=== PATIENT | male | born 1935 | race Caucasian/White ===

== ENCOUNTER 2017-02-11 14:32 | Emergency (ER) | payer MEDICARE, BC ==
[2017-02-11 16:49] LABS: BASOPHILS 1.8 % (0.0-2.0); EOSINOPHILS 1.7 % (0.0-6.0); LYMPHOCYTES 56.8 % (20.0-40.0); LYMPHOCYTES# 0.9 X 10^3uL (0.8-3.8); MEAN CELL VOLUME 96.1 fL (80.0-100.0); MEAN CORPUS. HGB CONCENTRATION 35.4 g/dL (32.0-36.0); MEAN PLATELET VOLUME 6.5 fL (7.4-10.4); MONOCYTES 2.1 % (2.0-10.0); NEUTROPHILS 37.6 % (54.0-75.0); NEUTROPHILS# 0.5 X 10^3uL (2.6-6.7); RED BLOOD COUNT 1.71 X 10^6uL (4.20-6.10); RED CELL DISTRIBUTION WIDTH 18.1 % (11.5-14.5)
[2017-02-11 16:51] LABS: ALBUMIN 3.3 g/dL (3.5-5.0); ALKALINE PHOSPHATASE 95 U/L (38-126); ALT 32 U/L (21-72); AST 19 U/L (17-59); BILIRUBIN, DIRECT 0.2 mg/dL (0.0-0.4); BILIRUBIN, TOTAL 0.8 mg/dL (0.2-1.3); BLOOD UREA NITROGEN 21 mg/dL (9-20); CALCIUM 9.1 mg/dL (8.4-10.2); CHLORIDE 102 mmol/L (98-107); CREATININE 0.9 mg/dL (0.7-1.3); EST GLOMERULAR FILTRATION RATE > 60 mL/min; GLUCOSE 116 mg/dL (70-100); LIPASE 88 U/L (23-300); POTASSIUM 4.1 mmol/L (3.5-5.1); SODIUM 135 mmol/L (137-145); TOTAL PROTEIN 5.8 g/dL (6.3-8.2)
[2017-02-11 17:47] LABS: HEMATOCRIT 16.4 % (42.0-54.0); HEMOGLOBIN 5.8 g/dL (14.0-18.0); PLATELET COUNT 8 X 10^3uL (130-440)
[2017-02-11 17:49] LABS: ABO GROUP TYPE B; ANTIBODY SCREEN NEGATIVE; RH TYPE NEGATIVE; WHITE BLOOD COUNT 1.4 X 10^3uL (3.9-10.7)
[2017-02-11 17:50] LABS: CROSSMATCH IMMEDIATE SPIN COMPATIBLE
--- NOTE | 2017-02-11 18:53 | ER PHYSICIAN DOCUMENTATION ---
Physician Documentation [facility] Name:Santiago Verma Age:81 yrs Sex:Male :1935 Arrival Date:02/11/2017 Time:14:32 BedTrauma A Private MD:Keanu Correa ED, Chris Disposition: 02/11 17:52 Critical Care: not applicable. cd 17:55 Chart complete. cd Disposition: 02/11/17 17:55 Transfer ordered to [facility]. 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 - Reason for transfer: Higher level of care. - Accepting physician is Dr. Joseph Martin, [facility] Hospitalist. - Condition is Serious. - Problem is an acute exacerbation. - Symptoms have improved. COBRA Form completed? Yes Transfer - Mode of Transportation Ambulance HPI: 17:28 This 81 yrs old Male presents to ER via Private Vehicle with complaints of cd Profound Weekness and Shortness of Breath. 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 Was on Vidaza for 14 months which kept it in remission. [employer] no longer worked December 2016. He had a new Chemotherapeutic Agent 2 weeks ago. He now complains of profound weakness at home. He denies melena, hematochezia or hematemesis. He denies fever, chills or rigors at home. There has been no nausea, vomiting or diarrhea. Onset: The symptom(s)/episode began/occurred gradually, 1 week(s) ago. Duration: The symptoms are continuous, and are steadily getting worse. Associated signs and symptoms: Pertinent negatives: chest pain, productive cough, diaphoresis, fever, hemoptysis, nausea, vomiting. Severity of symptoms: At their worst the symptoms were moderate in the emergency department the symptoms are unchanged. Historical: - Allergies: PENICILLINS; Aciphex; tree nuts; - Home Meds: 1. Omeprazole Oral - PMHx: PSEUDOPHAKIA; FATIGUE; URINARY RETENTION; HYPOXEMIA; KIDNEY CYST; KIDNEY STONES; SPINAL STENOSIS OF LUMBAR REGION; SPONDYLOLISTHESIS ; ARTHRITIS; GERD; COLON POLYP; BRONCHITIS; ATRIAL FIB; CHRONIC PAIN; ACUTE MYELOID LEUKEMIA; WALDENSTROM MACROGLOBULINEMIA; HERPES ZOSTER OPHTHALMICUS; CARDIAC MURMUR; CHOLELITHIASIS; HEPATITIS; Chills w/o Fever - : Rule out Endocarditis vs AML Reoccurance (January 02, 2017); - PSHx: LAMINECTOMY; TONSILLECTOMY; ADENOIDS; CATARACT SURGERY; - Tetanus: unknown. - Ebola Screening: : Patient negative for fever greater than or equal to 101.5 degrees Fahrenheit, and additional compatible Ebola Virus Disease symptoms. Patient denies exposure to infectious person. Patient denies travel to an Ebola-affected area in the 21 days before illness onset. No symptoms or risks identified at this time. . - Immunization history: Unable to Obtain. ROS: 17:36 Eyes: Negative for injury, pain, redness, discharge, blurry vision and loss of vision. cd ENT: Negative for injury, pain, epistaxis and discharge. Neck: Negative for injury, pain, stiffness and swelling. Cardiovascular: Negative for chest pain, palpitations, edema and pleuritic pain. Abdomen/GI: Negative for abdominal pain, nausea, vomiting, diarrhea, constipation, distension, melena, hematochezia and hematemesis. Back: Negative for injury, pain or muscle spasms. : Negative for injury, bleeding, discharge, swelling, dysuria, frequency or urgency. MS/Extremity: Negative for injury, deformity, edema, calf tenderness, pain or coldness. 17:36 Skin: Negative for injury, rash, itching and discoloration. cd 17:36 Constitutional: Positive for fatigue, malaise, poor PO intake, Negative for chills, fever. 17:36 Respiratory: Positive for dyspnea on exertion, shortness of breath, Negative for cough, hemoptysis, orthopnea, pleurisy, wheezing. 17:36 Neuro: Positive for weakness, Negative for altered mental status, headache, loss of consciousness, syncope. 17:36 All other systems are negative. Exam: Head/Face: Normocephalic, atraumatic. Eyes: Pupils equal round and reactive to light, extra-ocular motions intact. Inner lids pale and lashes normal. Conjunctiva and sclera are non-icteric and not injected. Cornea within normal limits. Periorbital areas with no swelling, redness, or edema. ENT: Nares patent. No nasal discharge, no septal abnormalities noted. Tympanic membranes are normal and external auditory canals are clear. Oropharynx with no redness, swelling, or masses, exudates, or evidence of obstruction, uvula midline. Mucous membranes dry. Gums pale Neck: Trachea midline, no thyromegaly or masses palpated, and no cervical lymphadenopathy. Supple, full range of motion without nuchal rigidity, or vertebral point tenderness. No Meningismus. Chest/axilla: Normal chest wall appearance and motion. Nontender with no deformity. No lesions are appreciated. Cardiovascular: Regular rate and rhythm with a normal S1 and S2. No gallops, murmurs, or rubs. Normal PMI, no JVD. No pulse deficits. Respiratory: Lungs have equal breath sounds bilaterally, clear to auscultation and percussion. No rales, rhonchi or wheezes noted. No increased work of breathing, no retractions or nasal flaring. Abdomen/GI: Soft, non-tender, with normal bowel sounds. No distension or tympany. No guarding or rebound. No evidence of tenderness throughout. Back: No spinal tenderness. No costovertebral tenderness. Full range of motion. MS/ Extremity: Pulses equal, no cyanosis. Neurovascular intact. Full, normal range of motion. 17:37 Neuro: Awake and alert, GCS 15, oriented to person, place, time, and situation. cd Cranial nerves II-XII grossly intact. Motor strength 5/5 in all extremities. Sensory grossly intact. Cerebellar exam normal. Normal gait. 17:37 Constitutional: The patient appears alert, awake, non-diaphoretic, non-toxic, well developed, frail, listless, pale. 17:37 Cardiovascular: Rate: normal, Rhythm: regular, Pulses: no pulse deficits are appreciated, Heart sounds: normal, Edema: is not appreciated. 17:37 Respiratory: the patient does not display signs of respiratory distress, Respirations: normal, no acute changes, labored breathing, is not present, shallow respirations, are not present, Breath sounds: rales, are not appreciated, rhonchi, are not appreciated, wheezing, is not appreciated, bronchial sounds, are not appreciated. 17:37 Skin: Appearance: Color: pale. Vital Signs: 14:40 BP 136 / 54; Pulse 83; Resp 24; Pulse Ox 94% on R/A; Pain 0/10; rs 15:00 BP 116 / 55; Pulse 79; Resp 20; Pulse Ox 100% on 2 lpm NC; Pain 0/10; rs 15:20 BP 135 / 53; Pulse 85; Resp 18; Pulse Ox 100% on 2 lpm NC; Pain 0/10; rs 15:30 BP 125 / 44; Pulse 83; Resp 20; Pulse Ox 91% on 2 lpm NC; Pain 0/10; rs 15:40 BP 126 / 50; Pulse 82; Resp 20; Pulse Ox 98% on 2 lpm NC; Pain 0/10; rs 16:00 BP 125 / 46; Pulse 78; Resp 20; Pulse Ox 99% on 2 lpm NC; Pain 0/10; rs 16:20 BP 114 / 52; Pulse 79; Pulse Ox 100% on 2 lpm NC; Pain 0/10; rs 16:40 BP 107 / 49; Pulse 79; Pulse Ox 99% ; Pain 0/10; rs 17:00 BP 107 / 49; Pulse 77; Resp 16; Pulse Ox 99% on 2 lpm NC; Pain 0/10; rs 17:18 BP 104 / 47; Pulse 75; Resp 16; Pulse Ox 98% on 2 lpm NC; Pain 0/10; rs 17:30 BP 102 / 50; Pulse 78; Resp 16; Pulse Ox 99% on 2 lpm NC; Pain 0/10; rs 18:00 BP 109 / 44; Pulse 78; Resp 18; Pulse Ox 99% on 2 lpm NC; Pain 0/10; rs 18:15 BP 111 / 50; Pulse 80; Resp 18; Pulse Ox 100% on 2 lpm NC; Pain 0/10; rs Isra Coma Score: 17:37 Eye Response: spontaneous(4). Verbal Response: oriented(5). Motor Response: obeys cd commands(6). Total: 15. MDM: 14:45 Data interpreted: Pulse oximetry: on room air is 94 %. Interpretation: normal. cd 14:48 Patient medically screened. cd 15:00 Differential diagnosis: Anemia Pulmonary Embolism Sepsis Dehydration. Antibiotic cd administration: Not indicated, the patient does not have an appreciated infiltrate. 16:00 Data reviewed: vital signs, nurses notes, old medical records, radiologic studies, and cd as a result, I will continue to observe the patient, administer IV fluids, NS maintenence, and check his CBC. I suspect he has a severe Pancytopenia due to his recent Chemotherapy 2 weeks ago.. 17:35 Physician consultation: Joseph Martin MD was called at 17:20, was contacted at 17:26, jeffrey regarding admission, to [facility] Oncology Floor Bed 3004, consult, patient's condition, need to evaluate the patient as soon as possible, and will see patient in inpatient room, shortly, later today, after a discussion of the case, a recommendation for transfer for higher level of care is made. 17:42 Counseling: I had a detailed discussion with the patient and/or guardian regarding: the cd historical points, exam findings, and any diagnostic results supporting the discharge/admit diagnosis, lab results, radiology results, the need to transfer to another facility, for higher level of care, [facility] does not immediately have the required specialist. 17:48 ED course: After multiple attempts at an IV we had to call in the PHONE REPRESENTATIVE, Kyler Gonsales cd to start the IV. He was also able to draw the blood work. The patient's ANC was just over 500 at 526. His H & H is 5.8 and 16.4. The patient's Platelet Count is very low at 8,000. He will be transfused with 2 units of blood. The first unit will be O- blood and the second unit will be Typed & Crossed. His vital signs remained stable throughout the patient's ED stay.. 18:18 Other attached tg 02/11 17:47 Order name: CBC AUTO DIF, MDIF/RMOR IF IND; Complete Time: 17:51 EDMS 02/11 17:51 Interpretation: Abnormal: WHITE BLOOD COUNT 1.4; HEMOGLOBIN 5.8; HEMATOCRIT 16.4; cd PLATELET COUNT 8; NEUTROPHILS 37.6; ., Pancytopenia, Anemia, Neutropenia, Thrombocytopenia. 02/11 17:48 Order name: BASIC METABOLIC PANEL; Complete Time: 17:51 EDMS 02/11 17:52 Interpretation: Normal. 02/11 17:48 Order name: HEPATIC PANEL; Complete Time: 17:51 EDMS 02/11 17:52 Interpretation: Normal Except: ALBUMIN 3.3; TOTAL PROTEIN 5.8. cd 02/11 17:48 Order name: LIPASE; Complete Time: 17:51 EDMS 02/11 17:52 Interpretation: Normal. cd 02/11 17:50 Order name: ABO GROUP; Complete Time: 17:52 EDMS 03/18 17:52 Interpretation: Normal. cd 02/11 17:50 Order name: RH TYPE; Complete Time: 17:52 EDMS 02/11 17:52 Interpretation: Normal. cd 02/11 17:50 Order name: ANTIBODY SCREEN; Complete Time: 17:52 EDMS 02/11 17:52 Interpretation: Normal. cd 02/11 17:50 Order name: CROSSMATCH IMMEDIATE SPIN; Complete Time: 17:52 EDMS 02/11 17:52 Interpretation: Normal. cd 02/11 14:49 Order name: I & O; Complete Time: 16:58 cd 02/11 14:49 Order name: NPO; Complete Time: 16:00 cd 02/11 14:49 Order name: Oxygen; Complete Time: 16:00 cd 02/11 14:49 Order name: Place Patient On Monitor; Complete Time: 16:00 cd 02/11 14:49 Order name: Pulse Ox Continuous; Complete Time: 16:00 cd 02/11 14:49 Order name: 12-lead EKG cd 02/11 14:49 Order name: Accucheck; Complete Time: 16:58 cd 02/11 14:49 Order name: Iv Saline Lock; Complete Time: 16:58 cd 02/11 17:04 Order name: Transfuse 2 Units T & C'd PRBCs: Transfuse one unit Type and Cross...; cd Complete Time: 18:18 02/11 17:04 Order name: Transfuse 2 Units Type Specific PRBCs: Transfuse one unit Type Specific cd PRBC's; Complete Time: 18:18 Dispensed Medications: 16:45 Drug: NS 0.9% 1000 ml; Volume: 1000 ml; Route: IV; Rate: 85 ml/hr; Site: right forearm; rs Delivery: Pump; 16:54 CANCELLED (Physician Discretion): NS 0.9% 500 ml IV at bolus once rs Signatures: Silverio Mckenzie RN RN tg Trisha Sandy RN RN Giorgio Sin MD MD cd
--- NOTE | 2017-02-11 18:53 | ER NURSING DOCUMENTATION ---
Nurse's Notes [facility] Name:Santiago Verma Age:81 yrs Sex:Male :1935 Arrival Date:02/11/2017 Time:14:32 BedTrauma A Private MD:Keanu Correa Diagnosis:Pancytopenia- 2nd to AML Chemotherapy 2 weeks ago;Aplastic Anemia-: Severe;Weakness;Dehydration Presentation: 02/11 14:39 Presenting complaint: Patient states: Hx of leukemia tx with new chemo recently and rs started to feel bad one week ago. Worse today; c/o SOB and weakness. States "blood counts are down". Transition of care: Home. 14:39 Acuity: ANURADHA 2 rs 14:39 Method Of Arrival: Private Vehicle rs Triage Assessment: 14:40 General: Appears slender, uncomfortable, Behavior is Angry. . Pain: Denies pain. Neuro: rs No deficits noted. Level of Consciousness is awake, alert, Oriented to person, place, time, event. Cardiovascular: Capillary refill is > 3 seconds Reports shortness of breath weakness Chest pain is denied. Respiratory: Respiratory effort is even, unlabored, Respiratory pattern is regular, symmetrical, tachypnea Breath sounds are clear bilaterally. Reports shortness of breath Onset: The symptoms/episode began/occurred one week. Derm: Skin is dry, Skin is pale, Skin temperature is warm. Historical: - Allergies: PENICILLINS; Aciphex; tree nuts; - Home Meds: 1. Omeprazole Oral - PMHx: PSEUDOPHAKIA; FATIGUE; URINARY RETENTION; HYPOXEMIA; KIDNEY CYST; KIDNEY STONES; SPINAL STENOSIS OF LUMBAR REGION; SPONDYLOLISTHESIS ; ARTHRITIS; GERD; COLON POLYP; BRONCHITIS; ATRIAL FIB; CHRONIC PAIN; ACUTE MYELOID LEUKEMIA; WALDENSTROM MACROGLOBULINEMIA; HERPES ZOSTER OPHTHALMICUS; CARDIAC MURMUR; CHOLELITHIASIS; HEPATITIS; Chills w/o Fever - : Rule out Endocarditis vs AML Reoccurance (January 02, 2017); - PSHx: LAMINECTOMY; TONSILLECTOMY; ADENOIDS; CATARACT SURGERY; - Tetanus: unknown. - Ebola Screening: : Patient negative for fever greater than or equal to 101.5 degrees Fahrenheit, and additional compatible Ebola Virus Disease symptoms. Patient denies exposure to infectious person. Patient denies travel to an Ebola-affected area in the 21 days before illness onset. No symptoms or risks identified at this time. . - Immunization history: Unable to Obtain. Screenin:41 Infectious Disease Risk None. Abuse screen: Denies threats or abuse. Nutritional rs screening: Unable to Obtain. Assessment: 16:51 Reassessment: Patient states feeling better. Patient states symptoms have improved. rs Skin color is less pale. . 19:48 Respiratory: Airway. rs Vital Signs: 14:40 BP 136 / 54; Pulse 83; Resp 24; Pulse Ox 94% on R/A; Pain 0/10; rs 15:00 BP 116 / 55; Pulse 79; Resp 20; Pulse Ox 100% on 2 lpm NC; Pain 0/10; rs 15:20 BP 135 / 53; Pulse 85; Resp 18; Pulse Ox 100% on 2 lpm NC; Pain 0/10; rs 15:30 BP 125 / 44; Pulse 83; Resp 20; Pulse Ox 91% on 2 lpm NC; Pain 0/10; rs 15:40 BP 126 / 50; Pulse 82; Resp 20; Pulse Ox 98% on 2 lpm NC; Pain 0/10; rs 16:00 BP 125 / 46; Pulse 78; Resp 20; Pulse Ox 99% on 2 lpm NC; Pain 0/10; rs 16:20 BP 114 / 52; Pulse 79; Pulse Ox 100% on 2 lpm NC; Pain 0/10; rs 16:40 BP 107 / 49; Pulse 79; Pulse Ox 99% ; Pain 0/10; rs 17:00 BP 107 / 49; Pulse 77; Resp 16; Pulse Ox 99% on 2 lpm NC; Pain 0/10; rs 17:18 BP 104 / 47; Pulse 75; Resp 16; Pulse Ox 98% on 2 lpm NC; Pain 0/10; rs 17:30 BP 102 / 50; Pulse 78; Resp 16; Pulse Ox 99% on 2 lpm NC; Pain 0/10; rs 18:00 BP 109 / 44; Pulse 78; Resp 18; Pulse Ox 99% on 2 lpm NC; Pain 0/10; rs 18:15 BP 111 / 50; Pulse 80; Resp 18; Pulse Ox 100% on 2 lpm NC; Pain 0/10; rs Isra Coma Score: 17:37 Eye Response: spontaneous(4). Verbal Response: oriented(5). Motor Response: obeys cd commands(6). Total: 15. ED Course: 14:33 Patient arrived in ED. ds 14:33 Keanu Correa MD is Private Physician. ds 14:39 Trisha Sandy RN is Primary Nurse. rs 14:45 Bed in low position Call Light in Reach Gowned HOB Elevated Side rails up x1. Family rs accompanied patient. 14:48 Giorgio Menchaca MD is Attending Physician. cd 14:48 Notified ED Physician of patient's arrival and chief complaint. Dr. Menchaca notified. rs 14:50 Door closed. Noise minimized. Verbal reassurance given. rs 15:00 Missed attempts: 20 gauge X 2 in left forearm, Pt refuses to allow IV to be started in rs AC. . 15:17 Triage completed. rs 15:20 Missed attempts: 20 gauge X 2 per rolled materials worker. rs 15:27 Port Xray Completed. pm1 15:44 Pulse Ox - RN Monitoring Only NIBP On - RN Monitoring Only. rs 16:01 Missed attempts: 20 gauge X 1. rs 16:11 Missed attempts: 20 gauge per Trista FINNEGAN. . rs 16:50 No apparent distress. Resting quietly. rs 16:50 Inserted saline lock: 20 gauge in right forearm and blood collected. rs 18:18 Other attached tg Administered Medications: 16:45 Drug: NS 0.9% 1000 ml; Volume: 1000 ml; Route: IV; Rate: 85 ml/hr; Site: right forearm; rs Delivery: Pump; 16:54 CANCELLED (Physician Discretion): NS 0.9% 500 ml IV at bolus once rs Medication: 17:43 Blood products: See transfusion record. tg 18:18 Blood products: See transfusion record. rs Outcome: 17:55 ER care complete, transfer ordered by . cd 18:18 Transferred: Patient will be transferred to: [facility]. Patient rs will be transported by: [facility] [place]. Nurse and Physician Charting and Notes were sent to Accepting Facility. 18:18 Condition: improved 18:18 Instructed on need for transfer 18:52 Patient left the ED. rs 19:47 Report given to Kaylee FINNEGAN [facility] oncology unit rs Signatures: Silverio Mckenzie RN RN tg Trisha Sandy RN RN rs Srot, Vivian, Reg Reg ds Giorgio Menchaca MD MD cd Vern Sánchez pm1
[2017-02-13 14:54] LABS: CROSSMATCH IMMEDIATE SPIN COMPATIBLE
--- NOTE | 2017-02-14 13:38 | RADIOLOGY REPORT ---
A limited single portable view of the chest is compared with multiple prior examinations. The heart and vessels are stable and unremarkable. No infiltrate , fluid or pneumothorax is seen. Again noted are calcified granulomas in the left upper lung field and right lung base. Calcified left hilar lymph nodes are also noted, consistent with old granulomatous disease. IMPRESSION: Evidence of old stable granulomatous disease. No acute cardiopulmonary abnormality is identified. MTDD
== END 2017-02-11 18:53 | disposition short-term general hospital (02) ==
LOC: ER 14:32
DX: D61.818 Other pancytopenia (principal); D61.89 Other specified aplastic anemias and other bone marrow failure syndromes; C92.00 Acute myeloblastic leukemia, not having achieved remission; R53.1 Weakness; E86.0 Dehydration; Z92.21 Personal history of antineoplastic chemotherapy; R53.83 Other fatigue; R53.81 Other malaise; Z79.899 Other long term (current) drug therapy; Z99.89 Dependence on other enabling machines and devices; Z74.3 Need for continuous supervision
CPT/HCPCS: 36430; 71010; 80048; 80076; 83690; 85025; 86850; 86900; 86901; 86920; 87040; 99284; 99285; A0425; A0427; P9040-BL

== ENCOUNTER 2017-03-13 12:53 | Observation (INO) | payer MEDICARE, BC ==
[2017-03-13 13:41] LABS: BASOPHILS 0.6 % (0.0-2.0); EOSINOPHILS 0.8 % (0.0-6.0); HEMATOCRIT 22.6 % (42.0-54.0); LYMPHOCYTES# 0.4 X 10^3uL (0.8-3.8); MEAN CELL VOLUME 86.6 fL (80.0-100.0); MEAN CORPUS. HGB CONCENTRATION 34.2 g/dL (32.0-36.0); MEAN CORPUSCULAR HEMOGLOBIN 29.6 pg (29.0-35.0); MEAN PLATELET VOLUME 5.4 fL (7.4-10.4); MONOCYTES 3.2 % (2.0-10.0); RED BLOOD COUNT 2.6 X 10^6uL (4.20-6.10); RED CELL DISTRIBUTION WIDTH 13.7 % (11.5-14.5)
[2017-03-13 13:57] LABS: HEMOGLOBIN 7.7 g/dL (14.0-18.0)
[2017-03-13 13:58] LABS: WHITE BLOOD COUNT 0.4 X 10^3uL (3.9-10.7)
[2017-03-13 13:59] LABS: LYMPHOCYTES 85.5 % (20.0-40.0); NEUTROPHILS 9.9 % (54.0-75.0)
[2017-03-13 14:08] LABS: INR 1.1
[2017-03-13] MEDS ORDERED: HOME MEDICATION LIST NEEDED 1 EA EACH MC ONE (14:38)
[2017-03-13] MEDS ORDERED: ACETAMINOPHEN 325 MG TABLET PO PRN ×2 (14:43→15:14)
[2017-03-13] MEDS ORDERED: GELATIN SPONGE,ABSORBABLE 12-7 1 SPONGE SPONGE TOPICAL ONE (14:48)
--- NOTE | 2017-03-13 15:22 | RADIOLOGY REPORT ---
HISTORY: Cough and neutropenia. COMPARISON: Chest x-ray February 11, 2017. FINDINGS: 2 frontal views of the chest obtained. There is a vague rounded opacity in the medial aspect of the right lower lung just above the diaphrag m. There are also increased interstitial markings bilaterally suggesting fibrosis. No effusion or pne umothorax. There is mild prominence of pulmonary arteries. Cardiac silhouette is within normal limits for size and trachea is midline. IMPRESSION: 1. Vague rounded opacity lower right lung with interstitial lung disease as above. Recommend further characterization with CT. Final Electronic Signature: This report was electronically signed by Cristian George MD on 03/13/2017 3:1 9 PM. sross /
[2017-03-13] MEDS: NORMAL SALINE 1,000 ML IV SCH (16:06)
[2017-03-13] MEDS ORDERED: NORMAL SALINE 250 ML IV ONE (16:42)
[2017-03-13 20:16] LABS: ABO GROUP TYPE B; ANTIBODY SCREEN NEGATIVE; RH TYPE NEGATIVE
[2017-03-14 00:01] LABS: URINE APPEARANCE SLIGHTLY CLOUDY; URINE COLOR DARK YELLOW; URINE GLUCOSE NORMAL (NEGATIVE); URINE KETONE NEGATIVE (NEGATIVE); URINE LEUKOCYTE ESTERASE NEGATIVE (NEGATIVE); URINE MUCUS NONE SEEN (Up to 25%); URINE NITRITE NEGATIVE (NEGATIVE); URINE PROTEIN NEGATIVE (NEG - TRACE); URINE UROBILINOGEN 1mg/dL (Normal) (NEG-1mg/dL); URINE WBC NONE SEEN (0-4/hpf)
[2017-03-14 00:03] LABS: URINE BACTERIA <10 ORGANISMS/hpf (<10/hpf); URINE BILIRUBIN NEGATIVE (NEGATIVE); URINE BLOOD 50 Ery/uL (2+) (NEGATIVE); URINE SQUAMOUS EPITHELIAL CELL 0-5/hpf (<= 15/hpf); URINE TRIPLE PHOSPHATE CRYSTAL MANY (Occasional)
[2017-03-14 01:15] LABS: HEMATOCRIT 22.4 % (42.0-54.0); HEMOGLOBIN 7.7 g/dL (14.0-18.0)
[2017-03-14 05:52] LABS: BASOPHILS 0.2 % (0.0-2.0); EOSINOPHILS 0.4 % (0.0-6.0); HEMATOCRIT 21.8 % (42.0-54.0); HEMOGLOBIN 7.5 g/dL (14.0-18.0); LYMPHOCYTES 89.8 % (20.0-40.0); LYMPHOCYTES# 0.4 X 10^3uL (0.8-3.8); MEAN CELL VOLUME 86.1 fL (80.0-100.0); MEAN CORPUS. HGB CONCENTRATION 34.5 g/dL (32.0-36.0); MEAN CORPUSCULAR HEMOGLOBIN 29.7 pg (29.0-35.0); MEAN PLATELET VOLUME 6.8 fL (7.4-10.4); MONOCYTES 2.3 % (2.0-10.0); NEUTROPHILS 7.3 % (54.0-75.0); RED BLOOD COUNT 2.53 X 10^6uL (4.20-6.10); RED CELL DISTRIBUTION WIDTH 13.6 % (11.5-14.5)
[2017-03-14 05:57] LABS: PLATELET COUNT 42 X 10^3uL (130-440); WHITE BLOOD COUNT 0.4 X 10^3uL (3.9-10.7)
[2017-03-14 06:07] LABS: INR 1.2
[2017-03-14 06:10] LABS: ALBUMIN 2.8 g/dL (3.5-5.0); ALKALINE PHOSPHATASE 183 U/L (38-126); ALT 43 U/L (21-72); AST 34 U/L (17-59); BILIRUBIN, DIRECT 0.8 mg/dL (0.0-0.4); BILIRUBIN, TOTAL 2.4 mg/dL (0.2-1.3); BLOOD UREA NITROGEN 17 mg/dL (9-20); CALCIUM 9.1 mg/dL (8.4-10.2); CHLORIDE 103 mmol/L (98-107); CREATININE 0.7 mg/dL (0.7-1.3); EST GLOMERULAR FILTRATION RATE > 60 mL/min; GLUCOSE 96 mg/dL (70-100); SODIUM 133 mmol/L (137-145); TOTAL PROTEIN 4.9 g/dL (6.3-8.2)
--- NOTE | 2017-03-14 06:36 | HISTORY & PHYSICAL ---
DATE OF ADMISSION: 03/13/17 ATTENDING PHYSICIAN: Keanu Correa MD CHIEF COMPLAINT: Bleeding from gums. 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 On this medication, he has had recurrent pancytopenia and has required multiple transfusions including packed red blood cells and platelets. He was most recently transfused 2 units of packed red blood cells 3 days ago. Over the course of the weekend, he developed bleeding from his left lower gum line. This was quite severe on Monday, then abated and returned again today. Based upon this, he came into the Emergency Department for further evaluation and was found to have markedly abnormal blood counts with a white blood count of 0.4 with 9.9% neutrophils, hemoglobin of 7.7 with a hematocrit of 22.6, and a platelet count of 3. His PT INR was 14.9/1.1 respectively. He is now being admitted for pancytopenia and transfusions of packed red blood cells and platelets. He denies any recent fevers, although he has had some chills in the afternoon. He has had a mild headache over the last couple of days, but no changes in cognition, language skills or focal changes in strength or sensation. No changes in vision. He denies any epistaxis. He has had gum bleeding as indicated above. He denies any hematemesis, melena or hematochezia. He has had mild hematuria. He has had a mild cough which has been improving without productivity and without chest pain. No shortness of breath beyond his baseline , but his energy level remains very low. He denies any chest pain or palpitations. No abdominal pain, nausea, or vomiting. No dysuria or urinary discharge. Mild hematuria as above. He denies any flank pain, but does have chronic low back pain issues which are unchanged. He has not had any skin rashes. He remains on chemotherapy with Decitabine as indicated above. My most recent note from his Oncologist is from 02/24/17. He was planned for cycle 2 of his Dacogen the first week of February. He remains on prophylactic therapy including Acyclovir 200 mg twice a day, Diflucan 200 mg 2 tabs daily and Levaquin 500 mg p.o. daily. He did not take these medications today due to the bleeding issues. PAST MEDICAL HISTORY 1. Renal cyst. 2. AML with failed remission as indicated above. 3. Acinetic keratosis. 4. Atrial fibrillation, controlled and not on anticoagulation therapy or rate controlled currently. 5. Bilateral renal stones. 6. Benign prostatic hypertrophy. 7. Chronic pain syndrome. 8. Chronic fatigue in association with multiple medical issues. 9. Gastroesophageal reflux disease without esophagitis. 10. History of herpes zoster ophthalmicus on the left side. 11. Chronic hypoxia with prior history of smoking. 12. Chronic low back pain with history of radiculitis. 13. Chronic obstructive pulmonary disease. 14. Pancytopenia which is acquired. 15. Postherpetic neuralgia involving left V1 distribution. 16. Primary open angle glaucoma, bilateral. 17. Spinal stenosis lumbar region. 18. Spondyloschisis lumbar region. 19. History of vertebral compression fracture involving L1. 20. History of Waldenstroms macroglobulinemia presenting with a tongue lesion. Now progressed to AML, status post Rituxan induced remission for his Waldenstroms. PAST SURGICAL HISTORY 1. Cataract surgery bilaterally. 2. Laminectomy with Coflex fusion L4-L5 in 2014. 3. Right femur fracture status, post open reduction, internal fixation. 4. Tonsillectomy and adenoidectomy. ALLERGIES AND INTOLERANCES Aciphex resulting in constipation. Penicillin resulting in uncertain reaction. MEDICATIONS Acyclovir 200 mg 1 p.o. b.i.d. Combigan 0.2-0.5% 1 drop to both eyes b.i.d. Decitabine per Oncology. Diflucan 400 mg p.o. daily. Latanoprost 0.005% 1 drop to each eye at bedtime. Levaquin 500 mg p.o. daily. Metoprolol succinate 25 mg p.o. daily. Multivitamin 1 p.o. daily. Omeprazole 20 mg p.o. daily. Zofran as needed. SOCIAL HISTORY: Patient is retired. Previously worked for [employer]. Former smoker with a 30+ pack a year history. Alcohol use is occasional at 2-3 times per week. No illicit drug use. FAMILY HISTORY: Noncontributory. REVIEW OF SYSTEMS: Pertinent positives and negatives as above. Remainder negative. PHYSICAL EXAMINATION VITAL SIGNS: Temperature of 99.2 with a blood pressure 118/53, pulse initially 125 and now down to 96, respiratory rate 18. He is 94% on room air and 96% with 2 liters. His weight is 88.45 kilograms. GENERAL: Elderly frail male. Does not appear to be in any significant distress. He is alert, interactive and appropriate. HEENT: Normocephalic, atraumatic. Sinuses are nontender. Pupils are equal, round and reactive to light. Conjunctivae are pale. Oropharynx shows large lesion to the left side of his tongue, consistent with his known Waldenstroms. He has oozing from the left lower gum line. Some superficial erosions involving the hard palate as well with mild oozing. NECK: Supple without lymphadenopathy or masses. No thyromegaly or nodules. CHEST: Decreased breath sounds throughout. Breath sounds are more decreased on the left base. I do not hear any pulmonary rales. No wheezes. No scattered rhonchi. CARDIAC: Regular rate and rhythm but distant. He does have a 1-2/6 holosystolic murmur best heard the left sternal border. Cannot feel a PMI. He has no jugular venous distention at 45 degrees. No lower extremity edema. ABDOMEN: Positive bowel sounds. Soft, nontender. Mildly distended. No hepatosplenomegaly by my exam. No rebound rigidity. BACK: No costovertebral angle tenderness. EXTREMITIES: Mild acrocyanosis at his toes. SKIN: Scattered ecchymoses but no rashes. LYMPH: No cervical or supraclavicular lymphadenopathy. NEUROLOGIC: Patient alert and oriented x3. Facial expressions are symmetric. Light touch sensation is intact. Moving all 4 extremities equally but weakly diffusely. He has mild dysarthria with gauze packing in his mouth and with his known tongue lesion. No aphasia, receptive or expressive. LABORATORY STUDIES: CBC showing a white count of 0.4 with 10% neutrophils, hemoglobin of 7.7 with hematocrit of 22.6. Platelet count is 3. INR is 1.1. Urinalysis, ordered and pending. Chest x-ray, ordered and pending. ASSESSMENT AND PLAN 1. Severe pancytopenia: Patient with AML undergoing chemotherapy with recurrent pancytopenia. Now presenting with acute bleeding with oozing from his gum line in the left lower region. Has received platelet transfusions x2-3 and requires this again today. Has received multiple packed red blood cells transfusions as recently as 3 days ago and requires this as well. He does not have any current symptoms or hypoperfusion, although he is weak. I discussed his case with covering Oncology and with the patient and his . I will admit to the hospital here at [facility] with a low threshold for transition to a larger facility if not doing well. He indicates that he may not be willing to be transferred to a larger facility however. I will transfuse 2 units of packed red blood cells which are leukopoor reduced and radiated. Will also transfuse 2 units of platelets. This will be done stat. Will reassess blood counts again in the morning and may require second transfusions. Gentle IV fluid resuscitation at this point. Gentle packing. At this time, he does have evidence of neutropenia as well, but he does not have fever or symptoms of infection. Will check urinalysis as above. Will also check chest x-ray considering slightly decreased breath sounds on the left base region. With regard to his AML, will continue with his usual medications for prophylaxis including Diflucan, Acyclovir, and Levofloxacin. Further recommendations will depend upon his course. His prognosis remains guarded. I have reviewed with him cardiac resuscitation status, and he wishes to be DNR and has recently filled out a [employer] MOST form. 2. AML: See discussion above. 3. Atrial fibrillation: No current evidence of recurrence. Will follow on telemetry considering physiological stress of his current situation. No aspirin , anticoagulation considering platelet issues. 4. Chronic obstructive pulmonary disease: Appears to be at his baseline. Chest x-ray ordered as above. Oxygen as needed. 5. Gastroesophageal reflux disease without esophagitis: Will continue with his usual proton pump inhibitor therapy. 6. Chronic low back pain with known spinal stenosis: Patient appears to be at baseline in this regard. Will make Tylenol available. NSAIDS are contraindicated. Depending upon his course, may need to consider stronger medication therapy for palliation. 7. Deep vein thrombosis prophylaxis: Medication prophylaxis is contraindicated. SCDs. 8. Vaccine status: Last Tdap was in 01/2013. Last flu vaccine was 08/31/16. Last Prevnar was in 10/2014. Zostavax has been contraindicated. 9. Cardiac resuscitation: DNR. This was confirmed with the patient and his today considering his age, comorbidities, prognosis with regard to his AML with failed remission. Copies: Alex Birto MD [facility]
[2017-03-14] MEDS ORDERED: ACETAMINOPHEN 325 MG TABLET PO PRN ×2 (08:01→12:55)
[2017-03-14] MEDS: NORMAL SALINE 1,000 ML IV SCH (08:07)
--- NOTE | 2017-03-14 08:09 | DC SUMMARY: IM Note ---
Discharge Summary: IM/Peds Provider: Date of Admission: 03/13/17 Admitting Provider: DIGNA FOX MD Attending Provider: DIGNA FOX MD Discharging Provider: DIGNA FOX MD Primary Care Provider: Discharge Date: 03/14/17 - Diagnosis (1) Anemia associated with chemotherapy Status: Acute (2) Chemotherapy-induced thrombocytopenia Status: Acute (3) Chemotherapy-induced neutropenia Status: Acute (4) AML (acute myeloid leukemia) with failed remission Status: Chronic (5) Pulmonary nodule Status: Chronic Hospital Course: As documented, patient admitted from the emergency department with severe thrombocytopenia, anemia, and neutropenia. With active bleeding along the gumlines, particularly involving the left lower jaw. Also, with gross hematuria. No evidence of infection. Chest x-ray stable without evidence of right lower lobe pulmonary nodule which has been present for years. Urinalysis showing blood but no evidence of inflammation or infection. Transfuse 4 units of packed red blood cells. Transfused 2 units of platelets. Responded well to this. Bleeding resolved. Hemodynamically stable. Appropriate for return home. He will have a repeat set of labs in another 2 days. Will likely require further transfusions. Will be reassessing his chemotherapy regimen with oncology within the next 2 weeks. - Time Spent with Patient Total time spent providing and/or coordinating discharge services: Time with patient DS: Less than 30 minutes Discharge - Patient/Caregiver Discharge Instructions Activity Level: As tolerated. Diet: As tolerated. Neutropenic precautions. Additional Instructions: Repeat laboratory studies in 2 days per standing orders. Follow up: LEONELA REED MD [MD] - 2 Weeks Overall discharge status: patient is progressing back to baseline Print Language: VIETNAMESE Disposition: HOME, SELF-CARE Discharge Summary Data - Medication History Medication History: Home Medications Acyclovir [Acyclovir] 200 mg PO BID 03/13/17 Decitabine [Dacogen] 44 mg IV DIRECTED 03/13/17 Fluconazole [Fluconazole] 200 mg PO DAILY 03/13/17 Levofloxacin [Levofloxacin] 500 mg PO DAILY 03/13/17 Inpatient Medications 03/13/17 15:14 Acetaminophen [Tylenol] 650 mg PO Q6H PRN 03/14/17 08:00 oxyCODONE HCL IR [Oxy Ir] 5 - 10 mg PO Q6H PRN 03/14/17 08:01 Acetaminophen [Tylenol] 650 mg PO ONCE PRN 03/14/17 09:00 Acyclovir [Zovirax] 200 mg PO BID Fluconazole [Diflucan] 200 mg PO DAILY 03/14/17 10:00 Levofloxacin [Levaquin] 500 mg PO BEFORE BREAKFAST Procedures and tests throughout hospitalization: Completed Lab Orders 03/14/17 01:05 HEMATOCRIT [HEM] Routine HEMOGLOBIN [HEM] Routine Pending Orders 03/13/17 13:25 IRRADIATION OF BLOOD PRODUCTS [HEM] Stat IRRADIATION OF BLOOD PRODUCTS [HEM] Stat IRRADIATION OF BLOOD PRODUCTS [HEM] Stat IRRADIATION OF BLOOD PRODUCTS [HEM] Stat PLT PHERESIS PRODUCT [HEM] Stat PLT PHERESIS PRODUCT [HEM] Stat PRBC WITH STORAGE [HEM] Stat PRBC WITH STORAGE [HEM] Stat 03/13/17 15:14 Acetaminophen [Tylenol] 650 mg PO Q6H PRN 03/14/17 08:00 oxyCODONE HCL IR [Oxy Ir] 5 - 10 mg PO Q6H PRN 03/14/17 08:01 Post Transfusion H&H ONCE RN Blood Transfusion Orders DIRECTED CROSSMATCH IMMEDIATE SPIN [HEM] Urgent Acetaminophen [Tylenol] 650 mg PO ONCE PRN 03/14/17 09:00 Acyclovir [Zovirax] 200 mg PO BID Fluconazole [Diflucan] 200 mg PO DAILY 03/14/17 10:00 Levofloxacin [Levaquin] 500 mg PO BEFORE BREAKFAST Labs on day of discharge: Labs from last 24 hours 03/14/17 03/14/17 03/13/17 05:25 01:05 23:50 WBC 0.4 L* RBC 2.53 L Hgb 7.5 L 7.7 L Hct 21.8 L 22.4 L MCV 86.1 MCH 29.7 MCHC 34.5 RDW 13.6 Plt Count 42 L* MPV 6.8 L Neutrophils % 7.3 L Lymphocytes % 89.8 H Eosinophils % 0.4 Basophils % 0.2 Neutrophils # 0.0 L Lymphocytes # 0.4 L Monocytes 2.3 Monocytes # 0.0 L Eosinophils # 0.0 Basophils # 0.0 PT 16.0 INR 1.2 Sodium 133 L Potassium 4.0 Chloride 103 Carbon Dioxide 25 BUN 17 Creatinine 0.7 GFR Calculation > 60 Glucose 96 Calcium 9.1 Total Bilirubin 2.4 H D Direct Bilirubin 0.8 H AST 34 ALT 43 Alkaline Phosphatase 183 H Total Protein 4.9 L Albumin 2.8 L Urine Color Dark yellow A Urine Appearance Slightly cloudy Urine pH 6.0 Ur Specific Cocoa 1.010 Urine Protein Negative Urine Ketones Negative Urine Blood 50 norma/ul (2+) A Urine Nitrate Negative Urine Bilirubin Negative Urine Urobilinogen 1mg/dl (normal) Ur Leukocyte Esterase Negative Urine RBC 10-25/hpf Urine WBC None seen Ur Squamous Epith Cells 0-5/hpf Triple Phos Crystals Many Urine Bacteria <10 organisms/hpf Urine Mucus None seen Urine Glucose Normal IM: Discharge Physical Exam - I&O/Vital Signs I&O: Intake & Output 03/13/17 03/14/17 03/14/17 21:59 05:59 13:59 Intake Total 3050 350 1280 Output Total 0 350 Balance 3050 350 930 Weight 79.5 kg 86 kg Intake: IV 100 630 Right Forearm 100 630 Oral 1500 150 Blood Product 1450 350 500 Output: Urine 0 350 Other: Urine Appearance Clear Urine Color Dark Theresa Voiding Method Urinal Vital Signs: Last Vital Signs Temp 37.1 C 03/14/17 06:36 Pulse 89 03/14/17 06:36 Resp 20 03/14/17 06:36 BP 115/57 03/14/17 06:36 Pulse Ox 90 03/14/17 06:36 Oxygen Flow Rate 1 Oxygen Delivery Method Room Air - Constitutional General appearance: Present: thin - Head Head exam: Present: normal inspection - Eye Eye exam: Present: other (pale conjunctivae) - ENT ENT exam: Present: mucous membranes moist - Respiratory Respiratory exam: Present: decreased breath sounds. Absent: accessory muscle use, rales, rhonchi, wheezes - Cardiovascular Cardiovascular exam: Present: RRR, systolic murmur (crescendo/decrescendo, left sternal border). Absent: S3, S4 - GI/Abdominal GI/Abdominal exam: Present: distended (mildly), normal bowel sounds, soft. Absent: organomegaly, tenderness - Extremities Exam Extremities exam: Absent: calf tenderness, edema - Neurological Exam Neurological exam: Present: alert, oriented X3 - Skin Skin exam: Present: petechiae (bilateral lower extremities below knees), other ( scattered ecchymoses) - Allied Health Notes Allied health notes reviewed: nursing
[2017-03-14] MEDS ORDERED: FLUCONAZOLE 100 MG CAPSULE PO SCH (09:00)
[2017-03-14] MEDS ORDERED: ACYCLOVIR 400 MG TABLET PO SCH (09:00)
[2017-03-14] MEDS ORDERED: LEVOFLOXACIN 250 MG TABLET PO SCH (10:00)
[2017-03-14 11:10] LABS: CROSSMATCH IMMEDIATE SPIN COMPATIBLE
[2017-03-14 11:11] LABS: CROSSMATCH IMMEDIATE SPIN COMPATIBLE
[2017-03-14] MEDS ORDERED: NORMAL SALINE IV PRN (12:25)
[2017-03-14 12:51] VITALS: O2SAT 92
--- NOTE | 2017-03-14 13:03 | ER PHYSICIAN DOCUMENTATION ---
Physician Documentation [facility] Name:Santiago Verma Age:81 yrs Sex:Male :1935 Arrival Date:03/13/2017 Time:12:53 Bed4 Private MD:Keanu Correa ED, Chris Disposition: 03/13/17 14:34 Admit ordered for Keanu Correa. Preliminary diagnosis are Aplastic Anemia, Secondary Thrombocytopenia, Other. - Bed requested for Medical/Surgical. - Condition is Fair. - Problem is an ongoing problem. - Symptoms are unchanged. 23 HR OBS Yes HPI: 03/13 13:00 This 81 yrs old Male presents to ER via Private Vehicle with complaints of cd Bleeding Gums and hematuria. 13:00 The patient presents with bleeding, ,oozing. The problem is located in the lower left cd second molar, lower left first molar and lower left second bicuspid. Onset: The symptom(s)/episode began/occurred acutely, 2 day(s) ago. Duration: The symptoms are continuous, and are unchanged since they started. Associated signs and symptoms: Pertinent negatives: chills, fever, nausea, vomiting, no severe headaches, melena, hematochezia or hematemesis. Patient has Chemotherapy induced AML. He has been Pancytopenic. He received 2 units of PRBC's on Monday 3 days ago. He has standing orders for Platelet and PRBC transfusions. He is here to see if he meets criteria for tranfusions.. Severity of symptoms: At their worst the symptoms were mild, in the emergency department the symptoms are unchanged. Historical: - Allergies: PENICILLINS; Aciphex; tree nuts; - Home Meds: 1. Chemotherapy 2. 3 unknown Antibiotics - PMHx: AML; PSEUDOPHAKIA; PSEUDOPHAKIA; URINARY RETENTION; HYPOXEMIA; KIDNEY CYST; KIDNEY STONES; SPINAL STENOSIS OF LUMBAR REGION; SPONDYLOLISTHESIS ; ARTHRITIS; GERD; COLON POLYP; BRONCHITIS; ATRIAL FIB; CHRONIC PAIN; ACUTE MYELOID LEUKEMIA; - Tetanus: unknown. - Ebola Screening: : No symptoms or risks identified at this time. . - Immunization history: Flu Vaccine < 1 year. - Social history: Smoking status: Patient states former smoker of tobacco. Patient/guardian denies using alcohol. ROS: 13:10 Constitutional: Positive for poor PO intake, Negative for chills, fever. cd 13:10 ENT: Positive for oozing blood from gums. 13:10 Cardiovascular: Negative for chest pain, palpitations. 13:10 Respiratory: Negative for cough, shortness of breath. 13:10 Abdomen/GI: Positive for anorexia, Negative for abdominal pain, nausea, vomiting, hematemesis, black/tarry stool, rectal bleeding. 13:10 : Positive for hematuria, without clots, Negative for urinary symptoms. 13:10 All other systems are negative. Exam: 13:10 Constitutional: The patient appears alert, awake, non-diaphoretic, non-toxic, well cd developed, well nourished, frail, pale. 13:10 ENT: Mouth: Gums: bleeding, on the lower left second molar, lower left first molar and lower left second bicuspid, Dental exam: normal. 13:10 Cardiovascular: Rate: normal, Rhythm: regular, Pulses: no pulse deficits are appreciated, Heart sounds: normal. 13:10 Respiratory: the patient does not display signs of respiratory distress, Breath sounds: are normal. 13:10 Abdomen/GI: Inspection: abdomen appears normal, Palpation: abdomen is soft and non-tender. 13:10 : CVA tenderness, is absent. 13:10 Skin: Appearance: Color: pale. 13:10 Neuro: Exam negative for acute changes. Vital Signs: 13:16 BP 102 / ???; Pulse 125; Resp 18; Temp 99.2; Pulse Ox 94% on R/A; Weight 88.45 kg; ma Height 6 ft. 4 in. (193.04 cm); Pain 0/10; 14:38 BP 118 / 53; Pulse 96; Pulse Ox 96% on 2 lpm NC; nc 13:16 Body Mass Index 23.74 (88.45 kg, 193.04 cm) nc Stirum Coma Score: 13:10 Eye Response: spontaneous(4). Verbal Response: oriented(5). Motor Response: obeys cd commands(6). Total: 15. MDM: 13:04 Patient medically screened. cd 13:10 Data interpreted: Pulse oximetry: on room air is 96 %. Interpretation: normal. cd 13:30 Differential diagnosis: Pancytopenia due to AML and Thrombocytopenia. cd 14:00 Data reviewed: vital signs, nurses notes, old medical records, lab test result(s), and cd as a result, I will admit patient, initiate a consult, from a [employer], Dr. Correa. 14:20 Counseling: I had a detailed discussion with the patient and/or guardian regarding: the cd historical points, exam findings, and any diagnostic results supporting the discharge/admit diagnosis, lab results, radiology results, the need for further work-up and treatment in the hospital. Physician consultation: Keanu Correa MD was called at 14:10, was contacted at 14:10, regarding admission, to the floor, consult, patient's condition, need to come to ED to see patient, need to evaluate the patient as soon as possible, and will see patient in ED, immediately. 03/13 13:59 Order name: CBC AUTO DIF, MDIF/RMOR IF IND; Complete Time: 14:12 EDMS 03/14 08:35 Interpretation: Abnormal: WHITE BLOOD COUNT 0.4; HEMOGLOBIN 7.7; HEMATOCRIT 22.6; cd PLATELET COUNT 3; Pancytopenia. 03/13 14:09 Order name: PROTIME/INR; Complete Time: 14:31 EDMS 03/14 08:35 Interpretation: Normal. cd 03/13 15:10 Order name: CHEST SINGLE VIEW [id number]; Complete Time: 08:36 EDMS Dispensed Medications: No medications were administered Signatures: Araceli Nagy, RN RN Giorgio Frank MD MD cd
--- NOTE | 2017-03-14 13:03 | ER NURSING DOCUMENTATION ---
Nurse's Notes [facility] Name:Santiago Verma Age:81 yrs Sex:Male :1935 Arrival Date:03/13/2017 Time:12:53 Bed4 Private MD:Keanu Correa Diagnosis:Aplastic Anemia;Secondary Thrombocytopenia, Other Presentation: 03/13 13:05 Presenting complaint: states: states pt has AML and received 2 units of blood ma on Monday Since Monday has had oozing of blood from gums Small ammt of strawberry colored drainage noted. Transition of care: Home. 13:05 Acuity: ANURADHA 3 ma 13:05 Method Of Arrival: Private Vehicle ma Triage Assessment: 13:14 General: Appears in no apparent distress, well developed, well nourished, Behavior is ma uncooperative, Pt not wanting to use provided gauze for blotting gums Does not want dressing moist Appears angry with monitoring equipment Also expresses anger and denial over any PMH besides Leukemia, states its all false. 13:20 Pain: Denies pain. ma Historical: - Allergies: PENICILLINS; Aciphex; tree nuts; - Home Meds: 1. Chemotherapy 2. 3 unknown Antibiotics - PMHx: AML; PSEUDOPHAKIA; PSEUDOPHAKIA; URINARY RETENTION; HYPOXEMIA; KIDNEY CYST; KIDNEY STONES; SPINAL STENOSIS OF LUMBAR REGION; SPONDYLOLISTHESIS ; ARTHRITIS; GERD; COLON POLYP; BRONCHITIS; ATRIAL FIB; CHRONIC PAIN; ACUTE MYELOID LEUKEMIA; - Tetanus: unknown. - Ebola Screening: : No symptoms or risks identified at this time. . - Immunization history: Flu Vaccine < 1 year. - Social history: Smoking status: Patient states former smoker of tobacco. Patient/guardian denies using alcohol. Screenin:17 Infectious Disease Risk None. Abuse screen: Denies threats or abuse. Nutritional ma screening: No deficits noted. Assessment: 15:23 Reassessment: No changes from previously documented assessment. ma Vital Signs: 13:16 BP 102 / ???; Pulse 125; Resp 18; Temp 99.2; Pulse Ox 94% on R/A; Weight 88.45 kg; ma Height 6 ft. 4 in. (193.04 cm); Pain 0/10; 14:38 BP 118 / 53; Pulse 96; Pulse Ox 96% on 2 lpm NC; ma 13:16 Body Mass Index 23.74 (88.45 kg, 193.04 cm) ma Isra Coma Score: 13:10 Eye Response: spontaneous(4). Verbal Response: oriented(5). Motor Response: obeys cd commands(6). Total: 15. ED Course: 12:54 Patient arrived in ED. ds 12:54 Keanu Correa MD is Private Physician. ds 13:04 Giorgio Menchaca MD is Attending Physician. cd 13:05 Araceli Nagy, RN is Primary Nurse. ma 13:06 Triage completed. ma 13:17 Valuables Given to family. Patient has correct armband on for positive identification. ma Bed in low position. Call light in reach. Side rails up X 1. Adult w/ patient. 14:15 Oxygen Oxygen administration via nasal cannula @ 2L/min. ma 14:30 Ice chips priovided. ma 14:33 Keanu Correa MD is Admitting Physician. cd 15:21 Inserted peripheral IV: 18 gauge in right forearm. ma Administered Medications: No medications were administered Outcome: 14:34 Decision to Admit by Provider. cd 15:22 Admitted to Med/surg ma 15:22 Condition: unchanged 15:22 Instructed on need to admit 15:23 Patient left the ED. ma Signatures: Araceli Nagy, KAIN RN bruno Srot, Vivian, Reg Reg Giorgio Davis MD MD cd
[2017-03-14] MEDS ORDERED: PHENYLEPHRINE 1% NASAL 15 SPRAYS/15 ML BTL NASAL ONE (13:53)
[2017-03-14] MEDS ORDERED: SILVER NITRATE 1 APP APP TOPICAL ONE (13:54)
[2017-03-14 18:34] VITALS: BP 116/61; RESP 24
[2017-03-14 18:48] LABS: HEMATOCRIT 27.5 % (42.0-54.0); HEMOGLOBIN 9.4 g/dL (14.0-18.0)
[2017-03-14 19:48] VITALS: PULSE 78; TEMP 98
== END 2017-03-14 17:42 | disposition home or self-care (01) ==
LOC: ER 12:53 → IN 15:10
PROVIDERS: ADMIT Internal Medicine; ATTEND Internal Medicine
DX: D61.811 Other drug-induced pancytopenia (principal); K06.8 Other specified disorders of gingiva and edentulous alveolar ridge; D69.59 Other secondary thrombocytopenia; T45.1X5A Adverse effect of antineoplastic and immunosuppressive drugs, initial encounter; C92.Z0 Other myeloid leukemia not having achieved remission; R91.1 Solitary pulmonary nodule; I48.2 Chronic atrial fibrillation; N40.0 Benign prostatic hyperplasia without lower urinary tract symptoms; K21.9 Gastro-esophageal reflux disease without esophagitis; M54.5 Low back pain; R09.02 Hypoxemia; G89.4 Chronic pain syndrome; R53.82 Chronic fatigue, unspecified; J44.9 Chronic obstructive pulmonary disease, unspecified; B02.29 Other postherpetic nervous system involvement; Z87.310 Personal history of (healed) osteoporosis fracture; M48.06 Spinal stenosis, lumbar region; M43.06 Spondylolysis, lumbar region; C88.0 Waldenstrom macroglobulinemia; Z79.899 Other long term (current) drug therapy
CPT/HCPCS: 36415; 36430; 71010; 80048; 80076; 81001; 85014; 85018; 85025; 85610; 86850; 86900; 86901; 86920; 86945; 93041; 96360; 96361; 99217; 99220; 99284; 99285; G0378; J7030; J7040; J7050; P9020; P9040-BL